=== PATIENT | male | born 1960 | race African-American/Black ===

== ENCOUNTER 2022-01-02 00:02 | Inpatient (IN) | payer OTHER ==
[2022-01-02 02:14] VITALS: BMI 35.9
[2022-01-02] MEDS: Sodium Chloride 0.9% 1,000 ML IV SCH ×3 (03:05→18:46)
[2022-01-02] MEDS: Acetaminophen 500 MG TAB PO SCH ×4 (03:22→20:44)
[2022-01-02] MEDS: Morphine 2 MG/ML VIAL SLOW IVP PRN ×3 (03:22→20:44)
[2022-01-02] MEDS ORDERED: hydrALAZINE 20 MG/ML VIAL SLOW IVP PRN (06:02)
[2022-01-02] MEDS ORDERED: Ondansetron PF 4 MG/2 ML Vial IVP PRN (06:02)
[2022-01-02] MEDS ORDERED: Promethazine HCl 25 MG/ML VIAL IM PRN ×2 (06:02→10:48)
[2022-01-02] MEDS ORDERED: CEFAZOLIN 2 GM in Sodium Chloride 0.9% 100 ML IVPB SCH (08:15)
[2022-01-02] MEDS ORDERED: ceFAZolin 2 GM/Dextrose 50 ML 2 GM in Premix Bag 1 BAG IVPB SCH (08:15)
[2022-01-02] MEDS: Famotidine/PF 20 mg/2ml Vial SLOW IVP SCH ×2 (08:16→20:45)
[2022-01-02] MEDS: Hydrochlorothiazide 25 MG TAB PO SCH (08:16)
[2022-01-02] MEDS ORDERED: CEFAZOLIN 2 GM VIAL ONE (08:30)
[2022-01-02] MEDS ORDERED: Fentanyl 100 MCG/2 ML VIAL ONE ×2 (08:44→11:04)
[2022-01-02] MEDS ORDERED: Midazolam HCl 2 mg/2 ml Vial ONE (08:44)
[2022-01-02] MEDS ORDERED: Lidocaine 1% PF 5 ML VIAL ONE (09:00)
[2022-01-02] MEDS ORDERED: Ondansetron PF 4 MG/2 ML Vial ONE (09:00)
[2022-01-02] MEDS ORDERED: Ketorolac Tromethamine 30 MG/ML VIAL ONE (09:00)
[2022-01-02] MEDS ORDERED: PROPOFOL 200 MG/20 ML VIAL ONE (09:00)
[2022-01-02] MEDS ORDERED: HYDROmorphone 2 MG/ML VIAL ONE (09:40)
[2022-01-02] MEDS ORDERED: PROPOFOL 20 ML ONE (09:51)
[2022-01-02] MEDS ORDERED: Meperidine HCl/PF 25 MG/ML VIAL SLOW IVP PRN (10:48)
[2022-01-02] MEDS ORDERED: HYDROmorphone 2 MG/ML VIAL SLOW IVP PRN (10:48)
[2022-01-02] MEDS ORDERED: Promethazine HCl 25 MG/ML VIAL IVPB PRN (10:48)
[2022-01-02] MEDS ORDERED: Ondansetron HCl/PF 4 MG/2 ML Vial IVP PRN (10:48)
[2022-01-02 11:22] LABS: #Eosinphils 0.1 thou/uL (0.0-0.7); #Lymphocytes 2.4 thou/uL (1.20-3.40); #Monocytes 0.5 thou/uL (0.11-0.59); #Neutrophils 2.4 thou/uL (1.40-6.50); %Basophils 0.7 % (0.0-1.0); %Eosinophils 2.3 % (0.0-10.0); %Lymphocytes 44.4 % (21.0-51.0); %Monocytes 8.8 % (0.0-10.0); %Neutrophils 43.9 % (42.0-75.0); Hemoglobin 14.2 g/dL (14.0-18.0); Mean Corpuscular HGB CONC 30.7 g/dL (32.0-36.0); Mean Corpuscular Volume 91.1 fL (78.0-98.0); Mean Platelet Volume 10.3 fL (7.4-10.4); Platelet Count 214 thou/uL (130-400); RBC Distribution Width 12.2 % (11.5-14.5); Red Blood Cell (RBC) Count 5.08 mill/uL (4.70-6.10); White Blood Cell (WBC) Count 5.5 thou/uL (4.8-10.8)
[2022-01-02 11:34] LABS: PTT 27.7 sec (22.9-36.1); Prothrombin Time 13.3 sec (12.0-14.7)
[2022-01-02 11:41] LABS: Anion Gap 12 mmol/L (10-20); BUN (Urea Nitrogen) 12 mg/dL (8.4-25.7); Calc. Creatinine Clearance 119 mL/min (70-130); Calcium 8.9 mg/dL (7.8-10.44); Carbon Dioxide 26 mmol/L (22-29); Chloride 105 mmol/L (98-107); Estimated GFR 74; Glucose 130 mg/dL (70-105); Magnesium 1.9 mg/dL (1.6-2.6); Phosphorus 3.9 mg/dL (2.3-4.7); Potassium 4.6 mmol/L (3.5-5.1); Sodium 138 mmol/L (136-145)
[2022-01-02] MEDS: CEFAZOLIN 2 GM in Sodium Chloride 0.9% 100 ML IVPB SCH ×2 (18:37→23:38)
[2022-01-02] MEDS ORDERED: traMADol HCl 50 MG TAB PO PRN (22:17)
[2022-01-02] MEDS ORDERED: Cyclobenzaprine 10 MG TAB PO PRN (22:18)
[2022-01-02] MEDS: traMADol HCl 50 MG TAB PO SCH (23:37)
[2022-01-03] MEDS: Acetaminophen 500 MG TAB PO SCH ×4 (03:48→20:11)
[2022-01-03] MEDS: Sodium Chloride 0.9% 1,000 ML IV SCH (03:49)
[2022-01-03] MEDS: traMADol HCl 50 MG TAB PO SCH ×3 (05:35→17:46)
[2022-01-03 05:46] LABS: #Eosinphils 0.1 thou/uL (0.0-0.7); #Lymphocytes 1.3 thou/uL (1.20-3.40); #Monocytes 0.9 thou/uL (0.11-0.59); %Eosinophils 0.7 % (0.0-10.0); %Lymphocytes 14.1 % (21.0-51.0); %Monocytes 9.5 % (0.0-10.0); %Neutrophils 75.7 % (42.0-75.0); Hemoglobin 12.6 g/dL (14.0-18.0); Mean Corpuscular HGB CONC 31.5 g/dL (32.0-36.0); Mean Corpuscular Hemoglobin 28.2 pg (27.0-31.0); Mean Corpuscular Volume 89.6 fL (78.0-98.0); Mean Platelet Volume 10.6 fL (7.4-10.4); Platelet Count 184 thou/uL (130-400); Red Blood Cell (RBC) Count 4.45 mill/uL (4.70-6.10); White Blood Cell (WBC) Count 9.2 thou/uL (4.8-10.8)
[2022-01-03 06:17] LABS: Anion Gap 12 mmol/L (10-20); BUN (Urea Nitrogen) 14 mg/dL (8.4-25.7); Calc. Creatinine Clearance 123 mL/min (70-130); Calcium 8.6 mg/dL (7.8-10.44); Carbon Dioxide 24 mmol/L (22-29); Chloride 105 mmol/L (98-107); Estimated GFR 77; Glucose 142 mg/dL (70-105); Magnesium 1.8 mg/dL (1.6-2.6); Potassium 3.9 mmol/L (3.5-5.1); Sodium 137 mmol/L (136-145)
[2022-01-03] MEDS: Hydrochlorothiazide 25 MG TAB PO SCH (09:02)
[2022-01-03] MEDS: Enoxaparin Sodium 40 MG/0.4 ML SYRINGE SC SCH (09:03)
[2022-01-03] MEDS: CEFAZOLIN 2 GM in Sodium Chloride 0.9% 100 ML IVPB SCH (09:03)
[2022-01-03] MEDS: Famotidine/PF 20 mg/2ml Vial SLOW IVP SCH ×2 (09:06→20:11)
[2022-01-04] MEDS: traMADol HCl 50 MG TAB PO SCH ×2 (00:14→06:19)
[2022-01-04] MEDS: Acetaminophen 500 MG TAB PO SCH ×2 (03:18→10:32)
[2022-01-04] MEDS: Hydrochlorothiazide 25 MG TAB PO SCH (10:30)
[2022-01-04] MEDS: Enoxaparin Sodium 40 MG/0.4 ML SYRINGE SC SCH (10:30)
[2022-01-04] MEDS: Ibuprofen 200 MG TAB PO SCH ×2 (10:33→18:38)
[2022-01-04] MEDS: Famotidine/PF 20 mg/2ml Vial SLOW IVP SCH ×2 (10:33→20:45)
[2022-01-04] MEDS ORDERED: traMADol HCl 50 MG TAB PO SCH (12:00)
[2022-01-04] MEDS: Acetaminophen 325 MG TAB PO SCH ×2 (18:37→20:45)
[2022-01-04] MEDS: Acetaminophen/Codeine 30-300mg Tablet PO SCH (18:37)
[2022-01-05] MEDS: Acetaminophen/Codeine 30-300mg Tablet PO SCH ×2 (00:17→05:32)
[2022-01-05] MEDS: Ibuprofen 200 MG TAB PO SCH (03:48)
[2022-01-05] MEDS: Acetaminophen 325 MG TAB PO SCH (03:48)
[2022-01-05 04:50] VITALS: BP 139/82; TEMP 98.8
== END 2022-01-05 07:02 | DRG 517 ==
LOC: EEVIPCON 00:02 → SJJU 00:02
PROVIDERS: ADMIT Student in an Organized Health Care Education/Training Program; ATTEND Surgery
PROC: 0QSF04Z Reposition Left Patella with Internal Fixation Device, Open Approach (ICD-10-PCS; principal; 2022-01-02)
DX: S82.002A Unspecified fracture of left patella, initial encounter for closed fracture (principal); Z20.822 Contact with and (suspected) exposure to COVID-19; I10 Essential (primary) hypertension; E11.9 Type 2 diabetes mellitus without complications; X58.XXXA Exposure to other specified factors, initial encounter; Z79.84 Long term (current) use of oral hypoglycemic drugs; Z79.899 Other long term (current) drug therapy; Y93.67 Activity, basketball; Y92.147 Courtyard of prison as the place of occurrence of the external cause
CPT/HCPCS: 36415; 36416; 76000; 80048; 83735; 84100; 85025; 85610; 85730; C1713; J0690; J1170; J1650; J1885; J2250; J2270; J2405; J2704; J3010; J3490; J7050; S0028